=== PATIENT | female | born 1960 | race Caucasian/White ===

== ENCOUNTER 2018-07-28 19:54 | Emergency (ER) | payer BC ==
[2018-07-28 20:08] VITALS: BP 133/85
[2018-07-28] MEDS ORDERED: Amoxicillin PO (*) 500 MG CAP PO ONE (20:21)
--- NOTE | 2018-07-28 20:23 | UC ---
Respiratory Complaint HPI - HPI Summary HPI Summary: The patient is a 57-year-old female with sinus pressure and pain 2-3 weeks. She has had right upper dental sensitivity times one week. She has mild right otalgia. She has had a sore throat for 2-3 days. He denies any fever or chills. - History of Current Complaint Chief Complaint: UCGeneralIllness Stated Complaint: SORE THROAT Time Seen by Provider: 07/28/18 20:05 Hx Obtained From: Patient Onset/Duration: Gradual Onset Timing: Constant Severity Initially: Mild Severity Currently: Moderate Pain Intensity: 4 Pain Scale Used: 0-10 Numeric Character: Cough: Nonproductive Aggravating Factors: Nothing Alleviating Factors: Nothing Associated Signs And Symptoms: Positive: Nasal Congestion, Sinus Discomfort - Allergies/Home Medications Allergies/Adverse Reactions: Allergies Allergy/AdvReac Type Severity Reaction Status Date / Time No Known Allergies Allergy Verified 07/28/18 20:05 Home Medications: Home Medications Levothyroxine TAB* [Synthroid 75 MCG TAB*] 75 mcg PO DAILY 07/28/18 [History Confirmed 07/28/18] Naproxen Sodium [Aleve] 440 mg PO DAILY 07/28/18 [History Confirmed 07/28/18] PMH/Surg Hx/FS Hx/Imm Hx Previously Healthy: Yes Endocrine History: Hypothyroidism - Surgical History Surgical History: Yes Surgery Procedure, Year, and Place: TUBAL LIGATION. MELANOMA REMOVAL. TONSILLECTOMY - Family History Known Family History: Positive: Hypertension - Social History Alcohol Use: None Substance Use Type: None Smoking Status (MU): Never Smoked Tobacco Review of Systems All Other Systems Reviewed And Are Negative: Yes Constitutional: Positive: Negative Skin: Positive: Negative Eyes: Positive: Negative ENT: Positive: Dental Pain, Sore Throat, Ear Ache, Nasal Discharge, Sinus Congestion, Sinus Pain/Tenderness Respiratory: Positive: Cough Cardiovascular: Positive: Negative Gastrointestinal: Positive: Negative Genitourinary: Positive: Negative Motor: Positive: Negative Neurovascular: Positive: Negative Musculoskeletal: Positive: Negative Neurological: Positive: Negative Psychological: Positive: Negative Physical Exam Triage Information Reviewed: Yes Appearance: Well-Appearing, No Pain Distress, Well-Nourished Vital Signs: Initial Vital Signs Temp 97.9 F 07/28/18 20:02 Pulse 85 07/28/18 20:02 Resp 18 12/18/18 20:02 BP 133/85 07/28/18 20:02 Pulse Ox 100 07/28/18 20:02 Vital Signs Reviewed: Yes Eyes: Positive: Conjunctiva Clear ENT: Positive: Hearing grossly normal, Pharyngeal erythema, Nasal congestion, Nasal drainage, TM bulging - R, TM dull - R, Hoarse voice, Sinus tenderness. Negative: Tonsillar swelling, Tonsillar exudate, Muffled voice Dental Exam: Normal Neck exam: Normal Neck: Positive: Supple, Nontender, No Lymphadenopathy Respiratory: Positive: Lungs clear, Normal breath sounds, No respiratory distress Cardiovascular: Positive: RRR, No Murmur, Pulses Normal Musculoskeletal: Positive: ROM Intact, No Edema Neurological: Positive: Alert Psychological Exam: Normal Skin Exam: Normal UC Diagnostic Evaluation - Laboratory O2 Sat by Pulse Oximetry: 100 - normal/not hypoxic Respiratory Course/Dx - Differential Dx/Diagnosis Provider Diagnosis: Acute sinusitis, Right acute serous otitis media, Elevated blood pressure reading without diagnosis of hypertension Discharge - Sign-Out/Discharge Documenting (check all that apply): Patient Departure All imaging exams completed and their final reports reviewed: No Studies - Discharge Plan Condition: Stable Disposition: HOME Prescriptions: Amoxicillin PO (*) [Amoxicillin 875 MG (*)] 875 mg PO BID #14 tab Patient Education Materials: Sinusitis (ED), Serous Otitis Media (ED) Referrals: Bong Santana MD [Primary Care Provider] - 1 Week (if not better recheck in 5- 10 days) Additional Instructions: saline nasal spray or NETI pot twice daily - Billing Disposition and Condition Condition: STABLE Disposition: Home
== END 2018-07-28 20:28 | disposition home or self-care (01) ==
LOC: UCCORT 19:54
DX: J01.90 Acute sinusitis, unspecified (principal); H65.01 Acute serous otitis media, right ear; R03.0 Elevated blood-pressure reading, without diagnosis of hypertension
CPT/HCPCS: 99212; A9270-GY; G0463

== ENCOUNTER 2018-08-21 10:18 | Emergency (ER) | payer BC ==
--- OUTSIDE RECORDS SUMMARY | 2018-08-21 10:32 | XMS REPORT ---
:1960 External Reference #:[id number] Author Organization [facility] Address [address] [place] [address] Phone [phone] Care Team Providers Name Role Phone Bong Santana MD Care Team Information Talcer Unavailable Bong Santana MD Primary Care Physician Unavailable Payers Type Date Identification Numbers Payment Provider Subscriber Commercial Effective: Policy Number: [id number] [place] Plan Mariama Nelson 2012 Group Name: [facility] Copay Code A [address] PayID: [id number] [place] [address] Problems Date Description Provider Status Onset: 03/26/2013 Multiple joint pain Bong Santana M.D. Active Onset: 06/21/2013 Hypothyroidism Bong Santana M.D. Active Onset: 09/11/2015 Benign paroxysmal positional Bong Santana M.D. Active vertigo Onset: 09/11/2015 Family history of malignant Bong Santana M.D. Active neoplasm of breast Onset: 09/11/2015 History of malignant melanoma of Bong Santana M.D. Active the skin Onset: 09/09/2011 Acute pharyngitis Olivia Mcneil M.D. Inactive Inactive: 10/27/2017 Onset: 05/19/2012 Acute upper respiratory infection Josh Mckenzie M.D. Inactive Inactive: 10/27/2017 Onset: 03/26/2013 Heart murmur Bong Santana M.D. Inactive Inactive: 10/27/2017 Onset: 06/21/2013 Dizziness and giddiness Bong Santana M.D. Inactive Inactive: 10/27/2017 Onset: 09/11/2015 Adult health examination Bong Santana M.D. Inactive Inactive: 10/27/2017 Onset: 09/13/2016 Chronic rhinitis Bong Santana M.D. Inactive Inactive: 10/27/2017 Onset: 10/06/2016 Microscopic hematuria Bong Santana M.D. Inactive Inactive: 10/27/2017 Onset: 10/27/2017 Screening for malignant neoplasm of Bong Santana M.D. Inactive colon Inactive: 10/27/2017 Family History Date Family Member(s) Problem(s) Comments Father Phlebitis Mother tachycardia Mother Diabetes Mellitus, II Number of Siblings Siblings: 5 First Brother Insulin Dependent Diabetes First Brother due to Diabetes () - 30's First Sister Diabetes Mellitus, II First Sister Hypertension Grandmother Breast Cancer Aunt Breast Cancer Social History Type Date Description Comments Marital Status Patient is Occupation [employer] Cigarette Use Nonsmoker ETOH Use Rare Smoking Patient has never smoked Daily Caffeine Consumes on average 3 cups of tea per day Enjoy Exercising Does enjoy exercising. 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 Sodium 2014 s tablet by Shallish, mouth once M.D. daily Multi Vit 00/ Active 1 po qd Bong F. 0000 Eladio Santana Loratadine / Active Tablets 10mg 30tab 1 po qd prn Bong F. 0000 s Eladio Santana Vitamin D3 / Active Capsules 4000Iu daily Unknown 0000 Cranberry 00/ Active Tablets 4200mg qd Unknown Extract 0000 Cinnamon / Active Tablets 2000mg qd Unknown 0000 Probiotic 0000/ Active Capsules qd Unknown Acidophilus 0000 Magnesium / Active Tablets 400mg qd Unknown 0000 Vitamin B-12 / Active Tablets 2000mcg 1 by mouth Unknown 0000 daily Cay[place] / Active 40,000Stu daily Unknown 0000 Fish Oil / Active Capsules 2400mg daily Unknown 0000 Niacin / Active Tablets daily Unknown 0000 Amoxicillin / Active Tablets 875mg 1 tab twice Unknown 0000 a day Physical 07/20/ Hx treatment/e H81.10 [facility] 2015 - xercises Ana, 09/11/ for Afnp-C 2016 vertigo; vestibular therapy Guaifenesin ac 01/31/ Hx Syrup 100-10mg/ 4oz 1-2 Dayanna 2015 [facility] mouth every Afnp-C 2014 4 hours as needed cough Meclizine HCL 09/01/ Hx Tablets 12.5mg 60tab 1 by mouth H81.10 Bong F. 2014 - s every 6 Shallish, 05/23/ hours as M.D. 2015 needed Levothyroxine 04/21/ Hx Tablets 50mcg 90tab 1 po qd Bong F. Sodium 2013 - s Esther, 05/01/ M.D. 2013 Levothyroxine 02/16/ Hx Tablets 25mcg 90tab 1 po qd Bong F. Sodium 2013 - s Esther, 04/21/ M.D. 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 2012 - ER s Esther, 09/13/ M.D. 2017 Amoxicillin 09/09/ Hx Tablets 500mg 30tab 1 po tid 462 Olivia Vega 2011 - s for 10 days Ewa, 05/19/ M.D. 2012 Azithromycin 01/14/ Hx Tablets 250mg 6tabs take 2 Bong F. 2010 - tablets by Esther, 09/09/ mouth on M.D. 2011 day 1 then 1 tablet on days 2 through 5 Robitussin A-C 01/14/ Hx 4Oz 1-2 tsp po Bong F. 2010 - q4h prn Esther, 09/09/ cough M.DPablito 2011 Physical 11/06/ Hx treatment Bong FPablito Therapy 2010 - and Esther, evaluation M.Demetris 2010 neck,right shoulder pain,backpa in Fish Oil / Hx Capsules 100mg 3 po qd Bong Wendi. ish, M.D. 2016 Niacin / Hx Tablets 50mg 2 PO qd Unknown 2016 Cranberry / Hx Capsules 250mg as directed Unknown 2015 Cinnamon / Hx Capsules 500mg 2 po qd Unknown 2015 Chromium / Hx Capsules 200mcg 1 po qd Unknown Picolate 2013 Vitamin B5 / Hx 1 po qd Bong Wendi. , M.D. 2016 Cayenne Fruit / Hx Capsules 455mg Unknown 2015 40,000 Amol / Hx Capsules qd Unknown 2016 Vitamin B5 00/ Hx 1000mg daily Unknown 2017 Immunizations CPT Code Status Date Vaccine Lot # [id number] Given 05/19/2014 Tdap Tetanus, W Pertussis [id number] Vital Signs Date Vital Result Comment 08/01/2018 BP Systolic 124 mmHg BP Diastolic 60 mmHg Heart Rate 66 /min Body Temperature 97.9 F Respiratory Rate 16 /min Height 68.5 inches 5'8.50" Weight 229.38 lb BMI (Body Mass Index) 34.4 kg/m2 10/27/2017 BP Systolic 110 mmHg BP Diastolic 82 mmHg Heart Rate 72 /min Body Temperature 97.7 F Height 68.5 inches 5'8.50" Weight 220.00 lb BMI (Body Mass Index) 33.0 kg/m2 09/13/2016 BP Systolic 110 mmHg BP Diastolic 80 mmHg Heart Rate 72 /min Body Temperature 97.3 F Height 68.5 inches 5'8.50" Weight 220.00 lb BMI (Body Mass Index) 33.0 kg/m2 05/23/2016 BP Systolic 118 mmHg BP Diastolic 70 mmHg Heart Rate 72 /min Body Temperature 97.8 F Respiratory Rate 16 /min Height 68 inches 5'8" Weight 217.00 lb BMI (Body Mass Index) 33.0 kg/m2 09/11/2015 BP Systolic 120 mmHg BP Diastolic 76 mmHg Heart Rate 74 /min Body Temperature 97.7 F Respiratory Rate 16 /min Height 68 inches 5'8" Weight 219.00 lb BMI (Body Mass Index) 33.3 kg/m2 07/20/2015 BP Systolic 120 mmHg BP Diastolic 78 mmHg Heart Rate 80 /min Body Temperature 97.9 F Respiratory Rate 18 /min Height 68 inches 5'8" Weight 218.00 lb BMI (Body Mass Index) 33.1 kg/m2 01/31/2015 BP Systolic 128 mmHg BP Diastolic 74 mmHg Heart Rate 68 /min Body Temperature 98.2 F Respiratory Rate 18 /min Height 68 inches 5'8" Weight 216.00 lb BMI (Body Mass Index) 32.8 kg/m2 09/01/2014 BP Systolic 136 mmHg BP Diastolic 88 mmHg Heart Rate 72 /min Body Temperature 99.1 F Respiratory Rate 16 /min Height 68 inches 5'8" Weight 218.00 lb BMI (Body Mass Index) 33.1 kg/m2 05/19/2014 BP Systolic 112 mmHg BP Diastolic 76 mmHg Heart Rate 68 /min Body Temperature 97.6 F Respiratory Rate 16 /min Height 68 inches 5'8" Weight 215.25 lb BMI (Body Mass Index) 32.7 kg/m2 01/14/2014 BP Systolic 120 mmHg BP Diastolic 74 mmHg Heart Rate 80 /min Body Temperature 98.1 F Respiratory Rate 16 /min Height 68 inches 5'8" Weight 213.00 lb BMI (Body Mass Index) 32.4 kg/m2 11/22/2013 BP Systolic 120 mmHg BP Diastolic 70 mmHg Heart Rate 80 /min Body Temperature 98.4 F Height 68 inches 5'8" Weight 218.00 lb BMI (Body Mass Index) 33.1 kg/m2 06/21/2013 BP Systolic 102 mmHg BP Diastolic 78 mmHg Heart Rate 68 /min Body Temperature 97.2 F Height 68 inches 5'8" Weight 214.38 lb BMI (Body Mass Index) 32.6 kg/m2 04/29/2013 BP Systolic 120 mmHg BP Diastolic 80 mmHg Heart Rate 70 /min Body Temperature 97.7 F Respiratory Rate 16 /min Height 68 inches 5'8" Weight 214.00 lb BMI (Body Mass Index) 32.5 kg/m2 03/26/2013 BP Systolic 120 mmHg BP Diastolic 80 mmHg Heart Rate 72 /min Body Temperature 97.5 F Respiratory Rate 16 /min Height 68 inches 5'8" Weight 211.00 lb BMI (Body Mass Index) 32.1 kg/m2 10/29/2012 BP Systolic 120 mmHg BP Diastolic 80 mmHg Heart Rate 72 /min Body Temperature 98.3 F Respiratory Rate 16 /min Height 68 inches 5'8" Weight 211.25 lb BMI (Body Mass Index) 32.1 kg/m2 05/19/2012 BP Systolic 126 mmHg BP Diastolic 76 mmHg Heart Rate 72 /min Body Temperature 98.5 F Height 68 inches 5'8" Weight 209.00 lb BMI (Body Mass Index) 31.8 kg/m2 09/09/2011 BP Systolic 104 mmHg BP Diastolic 74 mmHg Heart Rate 82 /min Body Temperature 98.1 F Height 68 inches 5'8" Weight 218.00 lb BMI (Body Mass Index) 33.1 kg/m2 01/14/2011 BP Systolic 122 mmHg BP Diastolic 64 mmHg Heart Rate 76 /min Body Temperature 97.5 F Respiratory Rate 22 /min Height 68 inches 5'8" Weight 211.00 lb BMI (Body Mass Index) 32.1 kg/m2 11/06/2010 BP Systolic 120 mmHg BP Diastolic 80 mmHg Heart Rate 72 /min Respiratory Rate 16 /min Height 68 inches 5'8" Weight 211.00 lb BMI (Body Mass Index) 32.1 kg/m2 07/28/2001 BP Systolic 110 mmHg BP Diastolic 60 mmHg Heart Rate 72 /min Height 68 inches 5'8" Weight 182.00 lb BMI (Body Mass Index) 27.7 kg/m2 07/23/2001 BP Systolic 110 mmHg LG Cuff BP Diastolic 70 mmHg LG Cuff Heart Rate 72 /min Body Temperature 97.6 F Height 68 inches 5'8" Weight 182.00 lb BMI (Body Mass Index) 27.7 kg/m2 Right Visual Acuity Distance 20/25 Left Visual Acuity Distance 20/15 Results Test Date Test Result H/L Range Note Laboratory test finding 10/27/2017 TSH 1.97 mIU/L 0.50-6.00 Free T4 1.16 ng/dL 0.75-1.54 Comprehensive Metabolic Prof 10/27/2017 Sodium 140 mEq/L 134-149 Potassium 4.8 mEq/L 3.6-5.5 Chloride 103 mEq/L 94-112 Carbon Dioxide 28 mEq/L 21-32 Glucose 94 mg/dL 70-105 BUN 15 mg/dL 6-26 Creatinine 1.0 mg/dL 0.6-1.4 BUN/Creat Ratio 15.0 CALC 8.0-36.0 Calcium 9.8 mg/dL 8.6-10.2 Total Protein 7.6 g/dL 6.4-8.3 Albumin 4.3 g/dL 3.8-5.5 Globulin 3.3 g/dL 2.0-4.8 A/G Ratio 1.3 CALC 0.6-2.3 Alk. Phosphatase 70 U/L 30-110 Alt (SGPT) 20 U/L 7-35 Ast (Sgot) 19 U/L 5-34 Total Bilirubin 0.6 mg/dL 0.2-1.3 GFR Non- >60 ml/min/1.73m^ >=60 GFR >60 ml/min/1.73m^ >=60 Lipid Profile 10/27/2017 Cholesterol 207 mg/dL High 120-200 Triglycerides 175 mg/dL 30-200 HDL Cholesterol 50 mg/dL 30-85 LDL (Calculated) 122 CALC 0-129 VLDL Cholesterol 35 mg/dL 0-50 HDL Risk Factor 4.1 CALC 0.0-4.4 CBC Electronic Fma 10/27/2017 WBC 5.3 x10^3/UL 4.0-10.0 RBC 4.38 x10^6/UL 3.93-6.00 HGB 13.9 g/dL 12.0-17.0 HCT 41 % 35-50 MCV 92.7 fL 80.0-95.0 MCH 31.7 pg 25.6-32.2 MCHC 34.2 g/dL 32.2-36.0 RDW-CV 12.8 % 11.6-14.4 PLT 297 x10^3/UL 163-400 MPV 9.7 fL 9.4-12.4 [place]# 2.97 x10^3/UL 1.56-6.13 Lymph# 1.91 x10^3/UL 1.18-3.74 [place]# 0.33 x10^3/UL 0.24-0.82 Eos # 0.1 x10^3/UL 0.0-0.5 Baso # 0.03 x10^3/UL 0.01-0.08 [place]% 55.9 % 34.0-70.0 Lymph % 36.0 % 20.0-52.0 [place]% 6.2 % 5.0-12.0 Eos% 1.1 % 0.7-7.0 Baso% 0.6 % 0.1-1.2 Microscopic Examination 09/13/2016 Microscopic Examination See below: WBC 6-10 /hpf 0 - 5 RBC 3-10 /hpf 0 - 2 Epithelial Cells (non renal) 0-10 /hpf 0 - 10 Epithelial Cells (renal) TNP Casts TNP Cast Type TNP Crystals TNP Crystal Type TNP Mucus Threads Present Not Estab. Bacteria Few None seen/Few Yeast TNP Trichomonas TNP Comment TNP Urinalysis, Complete 09/13/2016 Specific [place] 1.018 1.005-1.030 pH 6.5 5.0-7.5 Urine-Color Yellow Yellow Appearance Clear Clear WBC Esterase Trace Negative Protein Negative Negative/Trace Glucose Negative Negative Ketones Negative Negative Occult Blood 2+ Negative Bilirubin Negative Negative Urobilinogen,Semi-Qn 0.2 EU/dL 0.2-1.0 Nitrite, Urine Negative Negative Microscopic Examination TNP Lipid Panel 09/13/2016 Cholesterol, Total 182 mg/dL 100-199 Triglycerides 234 mg/dL High 0-149 HDL Cholesterol 41 mg/dL >39 VLDL Cholesterol Rich 47 mg/dL High 5-40 LDL Cholesterol Calc 94 mg/dL 0-99 Comment: [facility] Metabolic Panel (14), Comprehensive 09/13/2016 Glucose, Serum 93 mg/dL 65 -99 BUN 17 mg/dL 6-24 Creatinine, Serum 1.00 mg/dL 0.57-1.00 eGFR If NonAfricn Am 64 mL/min/1.73 >59 eGFR If Africn Am 74 mL/min/1.73 >59 BUN/Creatinine Ratio 17 9-23 Sodium, Serum 143 mmol/L 134-144 Potassium, Serum 5.0 mmol/L 3.5-5.2 Chloride, Serum 105 mmol/L 96-106 Carbon Dioxide, Total 24 mmol/L 18-29 Calcium, Serum 9.3 mg/dL 8.7-10.2 Protein, Total, Serum 7.0 g/dL 6.0-8.5 Albumin, Serum 4.2 g/dL 3.5-5.5 Globulin, Total 2.8 g/dL 1.5-4.5 A/G Ratio 1.5 1.1-2.5 Bilirubin, Total 0.3 mg/dL 0.0-1.2 Alkaline Phosphatase, S 78 IU/L 39-117 Ast (Sgot) 31 IU/L 0-40 Alt (SGPT) 34 IU/L High 0-32 CBC With Differential/Platelet 09/13/2016 WBC 4.5 x10E3/uL 3.4-10.8 RBC 4.36 x10E6/uL 3.77-5.28 Hemoglobin 13.6 g/dL 11.1-15.9 Hematocrit 40.7 % 34.0-46.6 MCV 93 fL 79-97 MCH 31.2 pg 26.6-33.0 MCHC 33.4 g/dL 31.5-35.7 RDW 13.4 % 12.3-15.4 Platelets 315 x10E3/uL 150-379 Neutrophils 52 % Lymphs 39 % Monocytes 6 % Eos 2 % Basos 1 % Immature Cells TNP Neutrophils (Absolute) 2.3 x10E3/uL 1.4-7.0 Lymphs (Absolute) 1.8 x10E3/uL 0.7-3.1 Monocytes(Absolute) 0.3 x10E3/uL 0.1-0.9 Eos (Absolute) 0.1 x10E3/uL 0.0-0.4 Baso (Absolute) 0.1 x10E3/uL 0.0-0.2 Immature Granulocytes 0 % Immature Grans (Abs) 0.0 x10E3/uL 0.0-0.1 NRBC TNP Hematology Comments: TNP Laboratory test finding 09/13/2016 TSH 4.430 uIU/mL 0.450-4.500 Thyroxine (T4) Free, Direct, S 1.38 ng/dL 0.82-1.77 Laboratory test finding 05/23/2016 Sedimentation Rate 38 mm Lyme AB/Western Blot Reflex 05/23/2016 Lyme IgG/IgM Ab <0.91 ISR 0.00- 0.90 1, 2 Lyme Disease Ab, Quant, IgM <0.80 index 0.00-0.79 1, 3 Laboratory test finding 09/11/2015 PDF [id number] SEE IMAGE Pap W/RFX High Risk HPV 09/11/2015 Diagn See Comment: 4 Adeq See Comment: 5 Perfor See Comment: 6 Comm . Note See Comment: 7 Iglbp See Comment: 8 Reflex See Comment: 9 Ua - Non Micro (Fma) 09/11/2015 Appearance CLEAR Color YELLOW Glucose, Urine (Fma/CMC/CTX) NEG Bilirubin NEG Ketones NEG SP Grav <=1.005 Blood SMALL Menses PH 6.5 Protein NEG Urobil 0.2 Nitrite NEG Leukocytes (Fma/CMC/Centrex) NEG Lipid Panel 09/11/2015 Cholesterol, Total 186 mg/dL 100-199 10 Triglycerides 296 mg/dL High 0-149 10 HDL Cholesterol 39 mg/dL Low >39 10, 11 VLDL Cholesterol Rich 59 mg/dL High 5-40 10 LDL Cholesterol Calc 88 mg/dL 0-99 10 Comment: TNP 10 Comp. Metabolic Panel (14) 09/11/2015 Glucose, Serum 77 mg/dL 65-99 10 BUN 15 mg/dL 6-24 10 Creatinine, Serum 0.91 mg/dL 0.57-1.00 10 eGFR If NonAfricn Am 72 mL/min/1.73 >59 10 eGFR If Africn Am 83 mL/min/1.73 >59 10 BUN/Creatinine Ratio 16 9-23 10 Sodium, Serum 139 mmol/L 134-144 10 Potassium, Serum 4.7 mmol/L 3.5-5.2 10 Chloride, Serum 98 mmol/L 97-108 10 Carbon Dioxide, Total 25 mmol/L 18-29 10 Calcium, Serum 9.6 mg/dL 8.7-10.2 10 Protein, Total, Serum 7.4 g/dL 6.0-8.5 10 Albumin, Serum 4.2 g/dL 3.5-5.5 10 Globulin, Total 3.2 g/dL 1.5-4.5 10 A/G Ratio 1.3 1.1-2.5 10 Bilirubin, Total 0.5 mg/dL 0.0-1.2 10 Alkaline Phosphatase, S 79 IU/L 39-117 10 Ast (Sgot) 21 IU/L 0-40 10 Alt (SGPT) 19 IU/L 0-32 10 CBC With Differential/Platelet 09/11/2015 WBC 7.2 x10E3/uL 3.4-10.8 10 RBC 4.51 x10E6/uL 3.77-5.28 10 Hemoglobin 14.1 g/dL 11.1-15.9 10 Hematocrit 41.9 % 34.0-46.6 10 MCV 93 fL 79-97 10 MCH 31.3 pg 26.6-33.0 10 MCHC 33.7 g/dL 31.5-35.7 10 RDW 13.3 % 12.3-15.4 10 Platelets 332 x10E3/uL 150-379 10 Neutrophils 57 % 10 Lymphs 34 % 10 Monocytes 5 % 10 Eos 3 % 10 Basos 1 % 10 Immature Cells TNP 10 Neutrophils (Absolute) 4.2 x10E3/uL 1.4-7.0 10 Lymphs (Absolute) 2.4 x10E3/uL 0.7-3.1 10 Monocytes(Absolute) 0.4 x10E3/uL 0.1-0.9 10 Eos (Absolute) 0.2 x10E3/uL 0.0-0.4 10 Baso (Absolute) 0.0 x10E3/uL 0.0-0.2 10 Immature Granulocytes 0 % 10 Immature Grans (Abs) 0.0 x10E3/uL 0.0-0.1 10 NRBC TNP 10 Hematology Comments: TNP 10 Laboratory test finding 09/11/2015 TSH 3.260 uIU/mL 0.450-4.500 10 Thyroxine (T4) Free, Direct, S 1.43 ng/dL 0.82-1.77 10 CBC With Differential/Platelet 07/20/2015 WBC 6.0 x10E3/uL 3.4-10.8 12 RBC 4.31 x10E6/uL 3.77-5.28 12 Hemoglobin 13.5 g/dL 11.1-15.9 12 Hematocrit 40.4 % 34.0-46.6 12 MCV 94 fL 79-97 12 MCH 31.3 pg 26.6-33.0 12 MCHC 33.4 g/dL 31.5-35.7 12 RDW 13.4 % 12.3-15.4 12 Platelets 324 x10E3/uL 150-379 12 Neutrophils 54 % 12 Lymphs 35 % 12 Monocytes 6 % 12 Eos 4 % 12 Basos 1 % 12 Immature Cells DNR 12 Neutrophils (Absolute) 3.3 x10E3/uL 1.4-7.0 12 Lymphs (Absolute) 2.1 x10E3/uL 0.7-3.1 12 Monocytes(Absolute) 0.3 x10E3/uL 0.1-0.9 12 Eos (Absolute) 0.2 x10E3/uL 0.0-0.4 12 Baso (Absolute) 0.0 x10E3/uL 0.0-0.2 12 Immature Granulocytes 0 % 12 Immature Grans (Abs) 0.0 x10E3/uL 0.0-0.1 12 NRBC DNR 12 Hematology Comments: DNR 12 Laboratory test finding 09/01/2014 TSH (Thyrotropin) 0.040 uIU/ml Low 0.350-5.500 13 T-4 Free 1.6 ng/dL 0.8-1.8 13 Laboratory test finding 05/13/2014 TSH (Thyrotropin) 4.340 uIU/ml 0.350- 5.500 14 Comprehensive Metabolic 05/13/2014 Glucose 88 mg/dL 70-100 14 BUN 14 mg/dL 4-18 14 Creatinine, Serum 1.00 mg/dL 0.50-1.10 14 Sodium 140 mmol/L 136-146 14 Potassium 4.7 mmol/L 3.5-5.3 14 Chloride 106 mmol/L 98-110 14 Carbon Dioxide 25 mmol/L 20-32 14 Albumin 4.4 g/dL 3.5-4.7 14 Protein, Total 7.7 g/dL 6.4-8.3 14 Calcium 9.6 mg/dL 8.4-10.4 14 Alkaline Phosphatase 95 U/L 10-118 14 Sgot (Ast) 20 U/L 3-40 14 SGPT (Alt) 25 U/L 7-50 14 Bilirubin, Total 0.40 mg/dL 0.30-1.20 14 Lipid Panel 05/13/2014 Cholesterol, Total 174 mg/dL <200 14 Triglycerides 180 mg/dL <150 14 HDL Cholesterol 42 mg/dL 40-60 14 Chol/HDL Cholesterol 4.1 14, 15 LDL Cholesterol, Calc. 96 mg/dL 14, 16 LDL/HDL Cholesterol 2.3 14, 17 Egfr (Calculated) 05/13/2014 Estimated GFR (CALCULATED) 14 Egfr 58 14, 18 Egfr, -Georgian >60 14, 19 Laboratory test finding 04/14/2014 TSH (Thyrotropin) 9.440 uIU/ml High 0.350-5.500 20 T-4 Free 1.0 ng/dL 0.8-1.8 20 Laboratory test finding 01/14/2014 TSH (Thyrotropin) 9.640 uIU/ml High 0.350-5.500 21 T-4 Free 1.0 ng/dL 0.8-1.8 21 Laboratory test finding 06/21/2013 TSH (Thyrotropin) 7.540 uIU/ml High 0.350-5.500 22 T-4 Free 1.1 ng/dL 0.8-1.8 22 Laboratory test finding 06/21/2013 Throat - Beta Strep negative@48hrs Fma Laboratory test finding 04/29/2013 Thin Prep SEE NOTE 23 W/HPV(Lsil/ERICA/Asc) Comprehensive Metabolic 04/29/2013 Glucose 85 mg/dL 70-100 24 BUN 15 mg/dL 4-18 24 Creatinine, Serum 1.13 mg/dL High 0.50-1.10 24 Sodium 138 mmol/L 136-146 24 Potassium 4.3 mmol/L 3.5-5.3 24 Chloride 103 mmol/L 98-110 24 Carbon Dioxide 26 mmol/L 20-32 24 Albumin 4.3 g/dL 3.5-4.7 24 Protein, Total 7.8 g/dL 6.4-8.3 24 Calcium 9.6 mg/dL 8.4-10.4 24 Alkaline Phosphatase 99 U/L 10-118 24 Sgot (Ast) 36 U/L 3-40 24 SGPT (Alt) 45 U/L 7-50 24 Bilirubin, Total 0.50 mg/dL 0.30-1.20 24 Lipid Panel 04/29/2013 Cholesterol, Total 188 mg/dL <200 24 Triglycerides 216 mg/dL <150 24 HDL Cholesterol 46 mg/dL 40-60 24 Chol/HDL Cholesterol 4.1 24, 25 LDL Cholesterol, Calc. 99 mg/dL 24, 26 LDL/HDL Cholesterol 2.2 24, 27 Laboratory test finding 04/29/2013 TSH (Thyrotropin) 8.970 uIU/ml High 0.350-5.500 24 C-Reactive Protein 3.8 mg/L 0.0-5.0 24 Lyme Igg/M W/RFX West 04/29/2013 Lyme IgG/IgM Ab <0.91 index 0.00-0.90 24, 28 Lyme Disease Ab, Quant, IgM <0.91 index 0.00-0.90 24, 29 Laboratory test finding 04/29/2013 Rheumatoid Arth Factor 8.3 IU/mL 0.0- 13.9 24 Protein Elect Serum 04/29/2013 Protein Elect Serum SEE BELOW 24 Graph Report TO FOLLOW 24 Albumin 4.1 g/dL 3.2-5.6 24 Alpha 1 Globulin, Serum 0.2 g/dL 0.1-0.4 24 Alpha 2 Globulin, Serum 0.7 g/dL 0.4-1.2 24 Beta Globulin, Serum 1.2 g/dL 0.6-1.3 24 Gamma Globulin 1.3 g/dL 0.5-1.6 24 M-Bryan Gamma NOT OBSERVED g/dL Not Observed 24 M-Bryan Beta NOT OBSERVED g/dL Not Observed 24 Globulin,Total 3.4 g/dL 2.0-4.5 24 A/G Ratio 1.2 0.7-2.0 24 Protein, Total 7.6 g/dL 6.4-8.3 24 Interpretation, Serum SEE COMMENT 24, 30 Laboratory test 04/29/2013 Anti Dsdna Antibodies <1 IU/mL 0-9 24, 31 finding CBC 04/29/2013 WBC 5.8 x10E3/uL 4.3-10.9 24 RBC 4.36 x10E6/uL 3.80-5.30 24 Hemoglobin 13.8 g/dL 11.8-15.8 24 Hematocrit 41.2 % 35.0-47.0 24 MCV 94.5 fl 82.0-98.0 24 MCH 31.7 pg 27.5-33.5 24 MCHC 33.5 g/dL 32.0-36.0 24 RDW 13.3 % 11.5-14.5 24 Platelet Count 338 x10E3/uL 130-400 24 MPV 10.9 fl High 6.5-10.5 24 Segmented Neutrophils 56.3 % 44.0-74.0 24 Lymphocytes 34.0 % 15.0-45.0 24 Monocytes 5.7 % 2.0-13.0 24 Eosinophils 3.1 % 0.0-6.0 24 Basophils 0.9 % 0.0-2.0 24 Neutrophil Absolute 3.3 x10E3/uL 1.4-7.0 24 Lymphocytes Absolute 2.0 x10E3/uL 1.0-3.4 24 Monocyte Absolute 0.3 x10E3/uL 0.2-1.0 24 Eosinophil Absolute 0.2 x10E3/uL 0.0-0.5 24 Basophil Absolute 0.1 x10E3/uL 0.0-0.2 24 Egfr (Calculated) 04/29/2013 Estimated GFR (CALCULATED) 24 Egfr 51 24, 32 Egfr, -[place]ian >60 24, 33 Ua - Non Micro (a) 03/26/2013 Appearance clear Color yellow Glucose, Urine (Fma/CMC/CTX) neg Bilirubin neg Ketones neg SP Grav 1.010 Blood small menses PH 5.5 Protein neg Urobil 0.2 Nitrite neg Leukocytes (a/[facility]Centrex[place] neg Ict Hemoccult (a) 11/21/2010 Ict Hemoccult (1) NEG Ict Hemoccult-(2) NEG Ict-Hemoccult (3) NEG Lipid Panel 11/14/2010 Cholesterol, Total 157 mg/dL <200 34 Triglycerides 127 mg/dL <150 34 HDL Cholesterol 42 mg/dL 40-60 34 Chol/HDL Cholesterol 3.7 34, 35 LDL Cholesterol, Calc. 90 mg/dL 34, 36 LDL/HDL Cholesterol 2.1 34, 37 Comprehensive Metabolic 11/14/2010 Glucose 106 mg/dL High 70-100 34 BUN 15 mg/dL 4-18 34 Creatinine, Serum 1.12 mg/dL High 0.50-1.10 34 Sodium 138 mmol/L 136-146 34 Potassium 4.9 mmol/L 3.5-5.3 34 Chloride 105 mmol/L 98-110 34 Carbon Dioxide 26 mmol/L 20-32 34 Albumin 4.4 g/dL 3.5-4.7 34 Protein, Total 7.5 g/dL 6.4-8.3 34 Calcium 9.3 mg/dL 8.4-10.4 34 Alkaline Phosphatase 71 U/L 10-118 34 Sgot (Ast) 26 U/L 3-40 34 SGPT (Alt) 29 U/L 7-50 34 Bilirubin, Total 0.40 mg/dL 0.30-1.20 34 Laboratory test finding 11/14/2010 TSH (Thyrotropin) 9.660 uIU/ml High 0.350-5.500 34 CBC 11/14/2010 WBC 5.3 x10E3/uL 4.3-10.9 34 RBC 4.56 x10E6/uL 3.80-5.30 34 Hemoglobin 14.0 g/dL 11.8-15.8 34 Hematocrit 41.9 % 35.0-47.0 34 MCV 91.9 fl 82.0-98.0 34 MCH 30.7 pg 27.5-33.5 34 MCHC 33.4 g/dL 32.0-36.0 34 RDW 12.8 % 11.5-14.5 34 Platelet Count 307 x10E3/uL 130-400 34 MPV 11.2 fl High 6.5-10.5 34 Segmented Neutrophils 58.6 % 44.0-74.0 34 Lymphocytes 33.0 % 15.0-45.0 34 Monocytes 5.6 % 2.0-13.0 34 Eosinophils 2.4 % 0.0-6.0 34 Basophils 0.4 % 0.0-2.0 34 Neutrophil Absolute 3.1 x10E3/uL 1.4-7.0 34 Lymphocytes Absolute 1.7 x10E3/uL 1.0-3.4 34 Monocyte Absolute 0.3 x10E3/uL 0.2-1.0 34 Eosinophil Absolute 0.1 x10E3/uL 0.0-0.5 34 Basophil Absolute 0.0 x10E3/uL 0.0-0.2 34 Laboratory test finding 11/14/2010 Rheumatoid Arth Factor 6.9 IU/mL 0.0- 13.9 34 Sedimentation Rate 28 MM/HR High 0-20 34 Laboratory test 11/14/2010 Anti Dsdna Antibodies 1 IU/mL 0-9 34, 38 finding Lyme Igg/M W/RFX West 11/14/2010 Lyme IgG/IgM Ab <0.91 index 0.00-0.90 34, 39 Lyme Disease Ab, Quant, IgM <0.91 index 0.00-0.90 34, 40 Urinalysis W/ Micro (CX) 11/14/2010 Urine Color COLORLESS Yellow 34 Urine Appearance CLEAR Clear 34 Urine Specific Gering 1.002 Low 1.005-1.030 34 Urine Leukocytes NEGATIVE Negative 34 Urine Nitrite NEGATIVE Negative 34 Urine PH 5.5 5.0-8.0 34 Urine Protein NEGATIVE mg/dL Negative 34 Urine Glucose NEGATIVE mg/dL Negative 34 Urine Ketones NEGATIVE mg/dL Negative 34 Urine Urobilinogen NORMAL mg/dL NORMALor<1 34 Urine Bilirubin NEGATIVE Negative 34 Urine Occult Blood NEGATIVE Negative 34 Microscopic, Reflex 11/14/2010 Microscopic, Reflex NOT INDICATED 34 Egfr (Calculated) 11/14/2010 Estimated GFR (CALCULATED) 34 Egfr 52 34, 41 Egfr, -Georgian >60 34, 42 Protein Elect Serum 11/14/2010 Protein Elect Serum SEE BELOW 34 Graph Report TO FOLLOW 34 Albumin 4.1 g/dL 3.2-5.6 34 Alpha 1 Globulin, Serum 0.2 g/dL 0.1-0.4 34 Alpha 2 Globulin, Serum 0.7 g/dL 0.4-1.2 34 Beta Globulin, Serum 1.4 g/dL High 0.6-1.3 34 Gamma Globulin 1.3 g/dL 0.5-1.6 34 M-Bryan Gamma NOT OBSERVED g/dL Not Observed 34 M-Bryan Beta NOT OBSERVED g/dL Not Observed 34 Globulin,Total 3.6 g/dL 2.0-4.5 34 A/G Ratio 1.1 0.7-2.0 34 Protein, Total 7.6 g/dL 6.4-8.3 34 Interpretation, Serum SEE COMMENT 34, 43 Laboratory test finding 07/30/2001 LDL, Direct 57.0 mg/dL 0-130 Lipid Profile (Fma) 07/30/2001 Cholesterol 148 mg/dL 140-200 Triglyceride 424 mg/dL High 30-150 VLDL 85 High 0-50 LDL-Calculated INVALID 0-160 HDL-Chol 33 Low 35-85 Comp Metabolic (Fma) 07/30/2001 Albumin 4.3 3.8-5.5 Alkaline Phosphatase 85 U/L 36-117 Bilirubin, Total 0.5 mg/dL 0.2-1.3 BUN 15 7-26 Calcium 9.8 mg/dL 8.6-10.0 Creatinine 0.9 mg/dL 0.6-1.4 Glucose 79 mg/dL 70 - 118 Ast Sgot 23 U/L 9-44 Alt (SGPT) 20 10-40 Total Protein 7.9 g/dL 6.4-8.3 Sodium 140 134-149 Potassium 4.6 3.6-5.5 Chloride 100 mEq/L 94-112 Co2 26 21-32 Globulin 3.6 2.0-4.8 Albumin / Globulin Ratio 1.2 0.6-2.2 BUN/Creatinin Ratio 16.7 8.0-36 Ua - Non Micro (Fma New) 07/30/2001 Appearance CLEAR LT YELLOW Glucose NEGATIVE Bilirubin NEGATIVE Ketones NEGATIVE SP Grav <=1.005 Blood NEGATIVE PH 6.5 Protein NEGATIVE Urobil 0.2 Nitrite NEGATIVE Leukocytes NEGATIVE CBC With Diff ([facility]) 07/30/2001 WBC 8.0 3.6-9.6 Lymphocytes 29.0 % 20.5 - 51.1 Monocytes 4.3 % 1.7-9.3 Granulocytes 66.7 % 42.2 - 75.2 Lymphocytes 2.3 10^3/uL 0.7 - 4.9 Monocytes 0.3 10^3/uL 0.1 - 0.9 Granulocytes 5.3 10^3/uL 1.5 - 7.2 RBC 4.42 3.90-5.70 Hemoglobin 13.9 g/dL 12.1 - 17.2 Hematocrit 41.1 % 36.1 - 50.3 Mean Corpuscular Vol 93.0 82.2-97.4 Mean Corpuscular Hemaglobin 31.5 27.6-33.3 Mean Corpuscular Hemo Concen 33.9 33.0-34.8 RDW 11.4 Low 11.6-13.7 Platelets 348. 10^3/ul 150-400 Mean Platelet Volume 8.2 7.4-10.4 Occult Blood (3) 07/29/2001 Occult Blood #1 NEGATIVE 07/25/01 Occult Blood #2 NEGATIVE 07/26/01 Occult Blood #3 NEGATIVE 07/28/01 Laboratory test finding 07/28/2001 Comments NOT SAVED FOR -> Micro Ua - Non Micro ([facility] New) 07/28/2001 Appearance CLEAR DK YELLOW Glucose NEGATIVE Bilirubin NEGATIVE Ketones NEGATIVE SP Grav 1.020 Blood TRACE-LYSED PH 5.0 Protein NEGATIVE Urobil 0.2 Nitrite NEGATIVE Leukocytes NEGATIVE 1 1 sst 2 Negative <0.91 Equivocal 0.91 - 1.09 Positive >1.09 3 Negative <0.80 Equivocal 0.80 - 1.19 Positive >1.19 IgM levels may peak at 3-6 weeks post infection, then gradually decline. 4 NEGATIVE FOR INTRAEPITHELIAL LESION AND MALIGNANCY. 5 Satisfactory for evaluation. Endocervical and/or squamous metaplastic cells (endocervical component) are present. 6 Kennedy Boykin, Electrical Tests Supervisor (ASCP) 7 The Pap smear is a screening test designed to aid in the detection of premalignant and malignant conditions of the uterine cervix. It is not a diagnostic procedure and should not be used as the sole means of detecting cervical cancer. Both false-positive and false-negative reports do occur. 8 This liquid based ThinPrep(R) pap test was screened with the use of an image guided system. 9 The HPV DNA reflex criteria were not met with this specimen result therefore, no HPV testing was performed. 10 2 SSTS 11 According to ATP-III Guidelines, HDL-C >59 mg/dL is considered a negative risk factor for CHD. 12 1LAV 13 1 sst 14 FASTING; 2 sst 15 CHOL/HDL Risk Ratio Levels MALE FEMALE 1/2 X Average 3.4 3.3 Average 5.0 4.4 2 X Average 9.5 7.0 3 X Average 24.0 11.0 16 Optimal under 100 mg/dl Near or above Optimal 100 - 129 mg/dl Borderline High 130 - 159 mg/dl High 160 - 189 mg/dl Very High above 190 mg/dl 17 LDL/HDL Risk Ratio Levels MALE FEMALE 1/2 X Average 1.0 1.5 Average 3.6 3.2 2 X Average 6.3 5.0 3 X Average 8.0 6.1 18 >59 mL/min/1.73m2 19 >59 mL/min/1.73m2 Note: Persistent reduction for 3 months or more in an eGFR <60 mL/min/1.73m2 defines CKD. Patients with eGFR values >=60 mL/min/1.73m2 may also have CKD if evidence of persistent proteinuria is present. Additional information may be found at www.kidney.org/professionals/kdoqi. 20 1 SST 21 1SST 22 1 yellow top 23 [facility] [employer], [facility]. DEPARTMENT OF PATHOLOGY or Extension [id number] [employer] OPERATOR CYTOLOGY REPORT PATIENT: MARIAMA NELSON : 1960 AGE: 52 Y SEX: F ACCT: [id number] PROCEDURE DATE: 04/29/2013 DATE RECEIVED: 04/30/2013 REQUESTING PROVIDER: AMINTA CHUNG NP [place] [facility] [place]. [id number] PATIENT DATA: [id number] SPECIMEN SUBMITTED: * * (HPVII) THIN PREP W/HPV (LSIL/ASC/ERICA) * * CERVICAL/ENDOCERVICAL RELEVANT HISTORY: LMP: 04/11/2013 Contraceptive: TUBAL : 6 Prev.normal: 2009 Para: 6 SPECIMEN ADEQUACY SATISFACTORY FOR EVALUATION, ENDOCERVICAL TRANSFORMATION ZONE COMPONENT PRESENT GENERAL CATEGORIZATION NEGATIVE FOR INTRAEPITHELIAL LESIONS OR MALIGNANCY RECOMMENDATIONS Refer to the corresponding web sites for 2012 updated general recommendation guidelines of [place] preventive service task force for cervical cancer screening, and www.asccp.org//yynjeewrb2365. COMMENTS Thin Prep Pap tests are examined with an FDA approved location-guidance system. ADDITIONAL COPIES SENT TO: Screened/Rescreened Electronically Signed Sign Out Date/Time: by: by: ALYSIA BOYKIN, 04/30/2013 13:28 CT(ASCP) Note: The Pap smear is a screening test designed to aid in the detection of premalignant and malignant conditions of the uterine cervix. It is not a diagnostic procedure and should not be used as the sole means of detecting cervical cancer. Both false-positive and false-negative reports do occur. 00 UA Pap Smear performed at [facility] Dir: Max Soto MD, [address] [facility] [id number] 01 ticket broker [facility] Dir: Kennedy Velasquez MD, [address] [facility] [id number] 02 [facility] [place] Dir: Mando Howard MD, [address] [place] [phone] For inquiries regarding HPV test results, the physician may contact [facility]: [phone] . 24 FASTING; 1LAV,3SST 25 CHOL/HDL Risk Ratio Levels MALE FEMALE 1/2 X Average 3.4 3.3 Average 5.0 4.4 2 X Average 9.5 7.0 3 X Average 24.0 11.0 26 Optimal under 100 mg/dl Near or above Optimal 100 - 129 mg/dl Borderline High 130 - 159 mg/dl High 160 - 189 mg/dl Very High above 190 mg/dl 27 LDL/HDL Risk Ratio Levels MALE FEMALE 1/2 X Average 1.0 1.5 Average 3.6 3.2 2 X Average 6.3 5.0 3 X Average 8.0 6.1 28 Negative <0.91 Equivocal 0.91 - 1.09 Positive >1.09 Note: The CDC currently advises that Western blot testing be performed following all equivocal or positive EIA results. Final diagnosis should include appropriate clinical findings and a positive EIA which is also positive by Western blot. 29 Negative <0.91 Equivocal 0.91 - 1.09 Positive >1.09 Note: IgM levels may peak at 3-6 weeks post infection, then gradually decline. FDA currently advises that Western Blot testing be performed following all equivocal or positive EIA results. Final diagnosis should include appropriate clinical findings and a positive EIA which is also positive by Western Blot. 30 Normal serum protein electrophoresis. 31 Negative <5 Equivocal 5 - 9 Positive >9 32 >59 mL/min/1.73m2 33 >59 mL/min/1.73m2 Note: Persistent reduction for 3 months or more in an eGFR <60 mL/min/1.73m2 defines CKD. Patients with eGFR values >=60 mL/min/1.73m2 may also have CKD if evidence of persistent proteinuria is present. Additional information may be found at www.kidney.org/professionals/kdoqi. 34 FASTING; 4 SST TUBES; 1 PURPLE TUBE 35 CHOL/HDL Risk Ratio Levels MALE FEMALE 1/2 X Average 3.4 3.3 Average 5.0 4.4 2 X Average 9.5 7.0 3 X Average 24.0 11.0 36 Optimal under 100 mg/dl Near or above Optimal 100 - 129 mg/dl Borderline High 130 - 159 mg/dl High 160 - 189 mg/dl Very High above 190 mg/dl 37 LDL/HDL Risk Ratio Levels MALE FEMALE 1/2 X Average 1.0 1.5 Average 3.6 3.2 2 X Average 6.3 5.0 3 X Average 8.0 6.1 38 Negative <5 Equivocal 5 - 9 Positive >9 39 Negative <0.91 Equivocal 0.91 - 1.09 Positive >1.09 Note: The CDC currently advises that Western blot testing be performed following all equivocal or positive EIA results. Final diagnosis should include appropriate clinical findings and a positive EIA which is also positive by Western blot. 40 Negative <0.91 Equivocal 0.91 - 1.09 Positive >1.09 . Note: IgM levels may peak at 3-6 weeks post infection, then gradually decline. FDA currently advises that Western Blot testing be performed following all equivocal or positive EIA results. Final diagnosis should include appropriate clinical findings and a positive EIA which is also positive by Western Blot. 41 >59 mL/min/1.73m2 42 >59 mL/min/1.73m2 Note: Persistent reduction for 3 months or more in an eGFR <60 mL/min/1.73m2 defines CKD. Patients with eGFR values >=60 mL/min/1.73m2 may also have CKD if evidence of persistent proteinuria is present. Additional information may be found at www.kidney.org/professionals/kdoqi. 43 Normal serum protein electrophoresis. Procedures Date CPT Code Description Status 04/10/2018 Mammogram Completed 10/11/2017 Mammogram Completed 09/30/2016 Mammogram Completed 09/20/2015 Mammogram Completed 09/11/2015 15869 Electrocardiogram Complete Completed 09/11/2015 63280 Pure Tone Audiometry Completed 06/21/2014 Mammogram Completed 05/31/2013 Colonoscopy Completed 04/02/2013 Mammogram Completed 03/26/2013 29491 Electrocardiogram Complete Completed 11/15/2010 Mammogram Completed 11/06/2010 06370 Electrocardiogram Complete Completed Encounters Type Date Location Provider CPT E/M Dx Office Visit 10/27/2017 10:50a [facility] Office Bong Santana M.D. 43922 E03.8 Z80.3 Z12.11 Office Visit 09/13/2016 8:00a [facility] Office Bong Santana M.D. 31273 E03.8 Z80.3 Z85.820 J31.0 Z00.00 Office Visit 05/23/2016 2:00p [facility] Office John Easton 82189 M79.602 M79.601 M79.605 M79.604 Office Visit 09/11/2015 1:00p [facility] Office Bong Santana M.D. 73801 E03.8 H81.13 Z80.3 Z85.820 Z00.00 H93.19 Office Visit 07/20/2015 1:45p [facility] Office John Easton 90269 H81.10 Office Visit 01/31/2015 3:45p [facility] Dayanna CedenoCharla mitchell-Vee 36901 465.9 786.2 Office Visit 09/01/2014 3:20p [facility] Joshua Hewitt M.D. 26062 244.8 386.11 Office Visit 05/19/2014 8:00a [facility] Aminta Chung, CRISTINA 59409 V72.31 V76.41 244.8 V06.1 v06.5 719.42 Office Visit 01/14/2014 8:40a [facility] Bong Santana M.D. 08150 244.8 709.9 Office Visit 11/22/2013 8:45a [facility] MIKAELA Correa 41259 466.0 786.2 Office Visit 06/21/2013 10:20a [facility] Bong Santana M.D. 33605 244.8 780.4 784.91 Office Visit 04/29/2013 8:00a [facility] Aminta ChungCRISTINA 48783 V72.31 V76.41 780.4 625.6 627.2 Office Visit 03/26/2013 3:40p [facility] Bong Santana M.D. 55717 719.49 785.2 780.4 V70.0 Office Visit 10/29/2012 2:45p [facility] MIKAELA Correa 57696 923.10 Office Visit 05/19/2012 1:10p [facility] Josh Mckenzie M.D. 34961 465.9 Office Visit 09/09/2011 11:40a [facility] Olivia Mcneil M.D. 64280 462 Office Visit 01/14/2011 10:40a [facility] Bong Santana M.D. 44899 466.0 Office Visit 11/06/2010 7:00p [facility] Bong Santana M.D. 23609 272.4 573.8 719.49 V70.0 V76.41 Office Visit 07/28/2001 2:30p [facility] John Riley 22705 Office Visit 07/23/2001 1:20p [facility] Bong Santana M.D. 27269 Plan of Care 08/01/2018 - Nedra Trung, FNPJ01.90 Acute sinusitis, unspecifiedComments: statistically it's a virus, but you've started the antibiotics so we'd best finish themcontinue conservative measures: Neti, warm facial compresses, push fluids, hot tea with honey, steam showers, humidity in your bedroominitiate steroid which I think will help with inflammationI would restart your allergies treatmentsFollow up:Call ISIDRO if condition changes/worsens in any wayAllNew Medication:Medrol 4 mg
[2018-08-21 11:10] VITALS: BP 128/85
--- NOTE | 2018-08-21 11:23 | ED ---
Throat Pain/Nasal Congestion - HPI Summary HPI Summary: 57 yr old female with the complaint of sore throat. Onset three days ago. No fever, chills. No myalgias. Her symptoms are moderate. She has mild nasal congestion and mild cough as well. She has coworker ill with same symptoms at her work. - History of Current Complaint Chief Complaint: UCRespiratory Time Seen by Provider: 08/21/18 11:11 - Allergies/Home Medications Allergies/Adverse Reactions: Allergies Allergy/AdvReac Type Severity Reaction Status Date / Time No Known Allergies Allergy Verified 08/21/18 11:05 Home Medications: Home Medications Dm/PE/Acetaminophen/Doxylamine [COLD & FLU MULTI-SYMPTOM (Liquid)] 1 mis PO BID PRN 08/21/18 [History Confirmed 08/21/18] PMH/Surg Hx/FS Hx/Imm Hx Endocrine/Hematology History: Reports: Hx Thyroid Disease - Cancer History Cancer Type, Location and Year: [place]. 1998 Hx Chemotherapy: No Hx Radiation Therapy: No - Surgical History Surgery Procedure, Year, and Place: TUBAL LIGATION. [place] REMOVAL. TONSILLECTOMY Infectious Disease History: No Infectious Disease History: Denies: Traveled Outside the [place] in Last 30 Days - Family History Known Family History: Positive: Hypertension - Social History Occupation: Employed Full-time Alcohol Use: None Substance Use Type: Reports: None Smoking Status (MU): Never Smoked Tobacco Review of Systems Constitutional: Negative Positive: Sore Throat All Other Systems Reviewed And Are Negative: Yes Physical Exam Triage Information Reviewed: Yes Vital Signs On Initial Exam: Initial Vitals Temp Pulse Resp BP Pulse Ox 98.8 F 74 18 128/85 99 08/21/18 11:07 08/21/18 11:07 08/21/18 11:07 08/21/18 11:07 08/21/18 11:07 Vital Signs Reviewed: Yes Appearance: Positive: Well-Appearing, No Pain Distress Skin: Positive: Warm Head/Face: Positive: Normal Head/Face Inspection Eyes: Positive: EOMI ENT: Positive: Pharyngeal erythema, Nasal congestion, TMs normal Neck: Positive: Nontender Respiratory/Lung Sounds: Positive: Clear to Auscultation, Breath Sounds Present Cardiovascular: Positive: RRR. Negative: Murmur Abdomen Description: Positive: Nontender. Negative: Distended Musculoskeletal: Positive: Strength/ROM Intact Neurological: Positive: Sensory/Motor Intact, Alert, Oriented to Person Place, Time, CN Intact II-III Psychiatric: Positive: Normal Diagnostics - Vital Signs Vital Signs Temp Pulse Resp BP Pulse Ox 08/21/18 11:07 98.8 F 74 18 128/85 99 - Laboratory Lab Statement: Any lab studies that have been ordered have been reviewed, and results considered in the medical decision making process. EENT Course/Dx - Course Course Of Treatment: neg rapid strep. DX URI. Fu with PMD. - Diagnoses Provider Diagnoses: Upper respiratory infection Discharge - Sign-Out/Discharge Documenting (check all that apply): Patient Departure All imaging exams completed and their final reports reviewed: No Studies - Discharge Plan Condition: Good Disposition: HOME Patient Education Materials: Upper Respiratory Infection (ED) Referrals: Bong Santana MD [Primary Care Provider] - 2 Days - Billing Disposition and Condition Condition: GOOD Disposition: Home
== END 2018-08-21 11:48 | disposition home or self-care (01) ==
LOC: UCCORT 10:18
DX: J06.9 Acute upper respiratory infection, unspecified (principal)
CPT/HCPCS: 87651; 99211; G0463